=== PATIENT | female | born 1955 | race Caucasian/White ===

== ENCOUNTER → 2016-06-04 | Outpatient (CLI) | payer OTHER ==
--- NOTE | 2016-06-05 08:14 | KCIC ---
PROCEDURE MRI lumbar spine without contrast. HISTORY Low back pain, bilateral hip and entire leg pain for 2 months, multiple falls TECHNIQUE Multiplanar, multi sequential non contrast MR imaging was performed of the lumbar spine. COMPARISON None FINDINGS There is grade 1 anterior spondylolisthesis at L4-5 and L3-4 at which there is facet degenerative change. Lumbar vertebral body stature is adequate. There is moderate to severe degenerative disc disease greater anteriorly at L4-5, to a lesser degree at L3-4 and L5-S1 and minimally at L2-3. There is also moderate degenerative disc disease at T12-L1, to lesser degree at T11-12. There are posterior annular tears at L3-4 and L4-5. There is no significant focal marrow edema. Conus terminates at L1. There is very mild reverse S-shaped curvature of the lumbar spine. Incidental note is made of retroaortic left renal vein. T11-T12: There is a shallow posterior central protrusion without spinal stenosis. Neural foramina are adequate. T12-L1: There is shallow protrusion superimposed on minimal disc osteophyte complex eccentric to the right lateral recess. Spinal canal is overall adequate. There is moderate narrowing of the right neural foramen, left neural foramen adequate. L1-2: There is negligible posterior central protrusion. Spinal canal and neural foramina are adequate. L2-3: There is mild prominence of posterior epidural fat. There is negligible disc osteophyte complex. Neural foramina and spinal canal are adequate. L3-4: There is moderate to severe facet degenerative change and severe buckling of the ligamentum flavum. There is partial uncovering of the posterior aspect of the disc due to spondylolisthesis, minimal superimposed disc osteophyte complex in the inferior left neural foramen. There is severe spinal stenosis, very limited preserved subarachnoid space. Right neural foramen is adequate, moderate narrowing of the left neural foramen with contact undersurface of the exiting left L3 nerve root distal aspect of the neural foramen. L4-5: There is moderate to severe facet hypertrophic change. There is mild partial uncovering of the posterior aspect of the disc due to spondylolisthesis. There is mild to moderate left lateral recess stenosis primarily from posteriorly by facet. There is mild narrowing of the left neural foramen, right neural foramen adequate. L5-S1: There is prominence of epidural fat in the lateral recesses bilaterally, very limited preserved central subarachnoid space. There is negligible disc osteophyte complex and bulge. There is minimal narrowing of the right neural foramen, left neural foramen adequate. IMPRESSION 1. There is severe spinal stenosis L3-4, mild to moderate left lateral recess stenosis at L4-5. 2. There is moderate to severe degenerative disc disease greater anteriorly at L4-5, to a lesser degree at L3-4, L5-S1, and T12-L1. 3. There is grade 1 anterior spondylolisthesis at L4-5 and L3-4 at which there is facet degenerative change. 4. There is moderate narrowing of the left L3-4 neural foramen with contact exiting left L3 nerve root, other mild narrowing as stated. Electronically signed by: Fred Hernandez MD (Jun 05, 2016 08:12:19)
== END | disposition home or self-care (01) ==
LOC: KCIC MRI 17:14
PROVIDERS: ATTEND Family Medicine
DX: M48.06 Spinal stenosis, lumbar region (principal); M43.16 Spondylolisthesis, lumbar region; M51.35 Other intervertebral disc degeneration, thoracolumbar region; M51.16 Intervertebral disc disorders with radiculopathy, lumbar region; M25.78 Osteophyte, vertebrae
CPT/HCPCS: 72148

== ENCOUNTER → 2016-06-17 | Outpatient (CLI) | payer OTHER ==
--- NOTE | 2016-06-17 12:51 | KCIC ---
PROCEDURE Three-view lumbar spine HISTORY Spondylolisthesis. Chronic low back pain. Multiple falls. COMPARISON No prior x-rays. Correlation is made with sagittal MR lumbar spine June 04, 2016. FINDINGS Neutral supine lateral, and standing lateral flexion and standing lateral extension views are obtained. Multilevel lumbar spondylosis with marginal osteophytes. Mild anterolisthesis of L3 on L4 and L4 on L5. The alignment appears fairly similar on the flexion and extension views, and also appears similar with what was seen on the lumbar spine MRI. No evidence of vertebral body compression deformity or aggressive bone destruction. There is minimal retrolisthesis T10 on T11 and T11 on T12 which is stable on the standing and the supine neutral view. IMPRESSION Multilevel lumbar spondylosis. Spondylolisthesis, particularly at L3-L4 and L4-L5, appears similar on the 3 images. Electronically signed by: Reid Fitzpatrick MD (Jun 17, 2016 12:50:03)
== END | disposition home or self-care (01) ==
LOC: KCIC 11:40
PROVIDERS: ATTEND Neurological Surgery
DX: M43.16 Spondylolisthesis, lumbar region (principal); M54.5 Low back pain; R29.6 Repeated falls
CPT/HCPCS: 72100

== ENCOUNTER → 2016-08-21 | Outpatient (CLI) | payer OTHER ==
[~2016-08-21] MED LIST: CALC-98 PO; CHOL100013 PO; FEXO1TAB31 PO; FLAX1CAP PO; HYDR50TA6 PO; METF-620 PO; OMEP20TA63 PO; SERT100T PO; SIMV20TA3 PO
[2016-08-21 14:56] LABS: BASO % 1 % (0-3); EOS % 7 % (0-3); HEMATOCRIT 36.5 % (36.0-47.0); HEMOGLOBIN 11.9 g/dL (12.0-15.5); LYMPH # 1.8 x10^3/uL (1.0-4.8); LYMPH % 24 % (24-48); MEAN CORPUSCULAR HEMOGLOBIN 26 pg (25-35); MEAN CORPUSCULAR HGB CONC 33 g/dL (31-37); MEAN CORPUSCULAR VOLUME 80 fL (79-100); MONO % 11 % (0-9); NEUT % 58 % (31-73); PLATELET COUNT 196 x10^3/uL (140-400); RED BLOOD COUNT 4.58 x10^6/uL (3.50-5.40); RED CELL DISTRIBUTION WIDTH 14.9 % (11.5-14.5); WHITE BLOOD COUNT 7.7 x10^3/uL (4.0-11.0)
--- NOTE | 2016-08-21 15:07 | EKG ---
[facility] [address] [place] [address] Test Date: 2016-08-21 Test Time: 15:07:40 Pat Name: NEELA WASHINGTON Department: Room: Gender: F [employer] Operator: YOUNG : 1955 Requested By: CHET BROOKS Order Number: [id number] Reading MD: Naun Mcqueen Measurements Intervals [place] Rate: 80 P: 38 [place]: 148 QRS: 11 QRSD: 94 T: 31 QT: 382 QTc: 444 Interpretive Statements SINUS RHYTHM INCOMPLETE RIGHT BUNDLE BRANCH BLOCK Electronically Signed On 08-22-2016 13:35:08 CDT by Naun Mcqueen
[2016-08-21 15:11] LABS: ALBUMIN 4.1 g/dL (3.4-5.0); ALBUMIN/GLOBULIN RATIO 1.1 (1.0-1.7); CALCIUM 10.1 mg/dL (8.5-10.1); CREATININE 0.7 mg/dL (0.6-1.0); GFR 85.1; POTASSIUM 3.9 mmol/L (3.5-5.1); TOTAL BILIRUBIN 0.3 mg/dL (0.2-1.0); TOTAL PROTEIN 7.7 g/dL (6.4-8.2)
--- NOTE | 2016-08-26 10:49 | HP ---
ADMIT DATE: 08/21/2016 Robert Dumont APRN dictating for Dr. Cabrera Brooks. Date of surgery will be 08/29/2016. HISTORY OF PRESENT ILLNESS: The patient is a pleasant 61-year-old who has problems with low back pain and pain which radiates into both of her legs. The pain tends to radiate into the buttock and posterior thighs and legs. She notes numbness predominantly in her left calf and foot. The problem started in early March. She reports multiple falls in 2016. She said she rates her pain as a 5/10 and that it is worse in the morning. Staying active seems to help. She takes Aleve. She has had chiropractic treatment, which gave her some short-term relief as well as physical therapy, which did not help her significantly. She takes [place] 7.5 to help with this pain. PAST MEDICAL HISTORY: Arthritis, asthma, head and neck injury, heart murmur, serious infection of the stomach, question intestinal disease and appendicitis. PAST SURGICAL HISTORY: Hysterectomy in 2003, cervical surgery in 1999, right carpal tunnel release in 2011, right knee in 2011, abdominal surgery, ruptured appendix in 2011. FAMILY HISTORY: Alzheimer's, bleeding problems, cancer, diabetes, heart problem/disease, hypertension, spine problems. SOCIAL HISTORY: She is a retired nurse. . Exercises weekly. Denies substance abuse. Denies tobacco use. Drinks alcohol one to two times per month. Drinks coffee, tea and soda. ALLERGIES: SULFA DRUGS AND IV CONTRAST DYE. CURRENT MEDICATIONS: Hydrochlorothiazide, Zoloft, Lisandra, metformin, simvastatin, multivitamin, calcium plus vitamin D, flaxseed oil, black cohosh, Aleve and prednisone. REVIEW OF SYSTEMS: A 12-point review of systems was obtained and is noncontributory except for that mentioned above. PHYSICAL EXAMINATION: GENERAL APPEARANCE: There is tenderness of lower lumbar spine with palpation diffusely. Paraspinal muscle bulk and strength are normal. There is restricted range of motion of the lumbar spine. NEUROLOGIC: On neurological testing, strength is 5/5. Sensory examination: There is decrease in light touch involving the leg and foot on the left. Her reflexes were trace at the knees and absent at the ankles. Straight leg raising on the left was positive. She has left buttock and posterior thigh pain. Straight leg raising is negative on the right. She had forward stooped antalgic gait. IMAGING: Reviewed. I reviewed her lumbar myelogram and post-myelogram CT scan. On that study, she has very severe stenosis at L3-L4 along with grade 1 spondylolisthesis at L3-L4 and L4-L5. She has moderate stenosis at L4-L5. There is no motion on flexion and extension views. ASSESSMENT: Spinal stenosis, lumbar region. PLAN: At this point, I feel that the most prudent course would be to operate and perform a laminectomy at L3-L4 to see if this does not help her. I explained in the future, she may require instrumented fusion, but at this point based on the imaging studies, the most prudent course would be decompress her alone. I outlined the surgery and the techniques involved. I outlined the risks. She understood. She would like to go ahead. CABRERA BROOKS MD DR: GEOVANNI/zheng JOB#: [id number] / [id number]
== END | disposition home or self-care (01) ==
LOC: SURGPAT 14:27
PROVIDERS: ATTEND Neurological Surgery
DX: M48.06 Spinal stenosis, lumbar region (principal)
CPT/HCPCS: 36415; 80053; 85027; 87641; 93005

== ENCOUNTER 2016-08-29 07:03 | Day surgery (SDC) | payer OTHER ==
[~2016-08-29] VITALS: Ht 175.3 cm; Wt 102.5 kg
[~2016-08-29 07:03] MED LIST changes: +BACITRACIN 50,000 UNIT in IV NORMAL SALINE 1000ML BAG 1,000 ML IRR ONE; +HYDROmorphone 2 MG/ML VIAL IV PRN; +IV RINGERS,LACTATED 1000ML 1,000 ML IV SCH; +LIDOCAINE 1% 1 ML SYRINGE. ID PRN; +MORPHINE SULFATE 2 MG/ML DISP.SYRIN. IV PRN; +ONDANSETRON PF 4 MG/2 ML VIAL. IV PRN; +PROCHLORPERAZINE 10 MG/2 ML VIAL. IV PRN; +fentaNYL PF VIAL 100 MCG/2 ML VIAL IV PRN
[2016-08-29] MEDS ORDERED: THROMBIN TOPICAL 20,000 UNIT SPRAY.SYRN KIT TP ONE (07:36)
[2016-08-29] MEDS ORDERED: BUPIVAC MPF-EPI 0.5%-1:200000 30 ML VIAL. ONE (07:36)
[2016-08-29] MEDS ORDERED: KETOROLAC 60 MG/2 ML INJ FOR OR. ONE (07:36)
[2016-08-29] MEDS ORDERED: GELATIN SPONGE SIZE 100. ONE (07:36)
[2016-08-29] MEDS ORDERED: fentaNYL PF VIAL 100 MCG/2 ML VIAL ONE (07:42)
[2016-08-29] MEDS ORDERED: SUCCINYLCHOLINE 200 MG/10 ML VIAL. ONE (07:42)
[2016-08-29] MEDS ORDERED: REMIFENTANIL 2 MG VIAL. IV ONE (07:42)
[2016-08-29] MEDS ORDERED: PROPOFOL 20 ML IV ONE (07:42)
[2016-08-29] MEDS ORDERED: PROPOFOL 50 ML IV ONE ×2 (07:42→10:18)
[2016-08-29] MEDS ORDERED: LIDOCAINE 2% PF Vial for OR 5 ML VIAL. ONE (07:42)
[2016-08-29] MEDS ORDERED: 0.9 % SODIUM CHLORIDE 50 ML VIAL. IJ ONE (07:42)
[2016-08-29] MEDS ORDERED: ROCURONIUM 50 MG/5 ML VIAL. ONE (07:43)
--- NOTE | 2016-08-29 09:14 | HP ---
ADMIT DATE: 08/29/2016 Robert Dumont APRN dictating for Dr. Cabrera Brooks. Date of surgery will be 08/29/2016. HISTORY OF PRESENT ILLNESS: The patient is a pleasant 61-year-old who has problems with low back pain and pain which radiates into both of her legs. The pain tends to radiate into the buttock and posterior thighs and legs. She notes numbness predominantly in her left calf and foot. The problem started in early March. She reports multiple falls in 2016. She said she rates her pain as a 5/10 and that it is worse in the morning. Staying active seems to help. She takes Aleve. She has had chiropractic treatment, which gave her some short-term relief as well as physical therapy, which did not help her significantly. She takes [place] 7.5 to help with this pain. PAST MEDICAL HISTORY: Arthritis, asthma, head and neck injury, heart murmur, serious infection of the stomach, question intestinal disease and appendicitis. PAST SURGICAL HISTORY: Hysterectomy in 2003, cervical surgery in 1999, right carpal tunnel release in 2011, right knee in 2011, abdominal surgery, ruptured appendix in 2011. FAMILY HISTORY: Alzheimer's, bleeding problems, cancer, diabetes, heart problem/disease, hypertension, spine problems. SOCIAL HISTORY: She is a retired nurse. . Exercises weekly. Denies substance abuse. Denies tobacco use. Drinks alcohol one to two times per month. Drinks coffee, tea and soda. ALLERGIES: SULFA DRUGS AND IV CONTRAST DYE. CURRENT MEDICATIONS: Hydrochlorothiazide, Zoloft, Lisandra, metformin, simvastatin, multivitamin, calcium plus vitamin D, flaxseed oil, black cohosh, Aleve and prednisone. REVIEW OF SYSTEMS: A 12-point review of systems was obtained and is noncontributory except for that mentioned above. PHYSICAL EXAMINATION: GENERAL APPEARANCE: There is tenderness of lower lumbar spine with palpation diffusely. Paraspinal muscle bulk and strength are normal. There is restricted range of motion of the lumbar spine. NEUROLOGIC: On neurological testing, strength is 5/5. Sensory examination: There is decrease in light touch involving the leg and foot on the left. Her reflexes were trace at the knees and absent at the ankles. Straight leg raising on the left was positive. She has left buttock and posterior thigh pain. Straight leg raising is negative on the right. She had forward stooped antalgic gait. IMAGING: Reviewed. I reviewed her lumbar myelogram and post-myelogram CT scan. On that study, she has very severe stenosis at L3-L4 along with grade 1 spondylolisthesis at L3-L4 and L4-L5. She has moderate stenosis at L4-L5. There is no motion on flexion and extension views. ASSESSMENT: Spinal stenosis, lumbar region. PLAN: At this point, I feel that the most prudent course would be to operate and perform a laminectomy at L3-L4 to see if this does not help her. I explained in the future, she may require instrumented fusion, but at this point based on the imaging studies, the most prudent course would be decompress her alone. I outlined the surgery and the techniques involved. I outlined the risks. She understood. She would like to go ahead. CABRERA BROOKS MD DR: GEOVANNI/zheng JOB#: [id number] / [id number]
[2016-08-29] MEDS ORDERED: DEXAMETHASONE SOD PHOS 20 MG/5 ML VIAL. ONE (09:26)
[2016-08-29] MEDS ORDERED: DESFLURANE > 120 MINUTES IH ONE (09:26)
[2016-08-29] MEDS ORDERED: PHENYLEPHRINE in 0.9% NACL PF 1 MG/10 ML DISP.SYRIN. IV ONE (09:26)
[2016-08-29] MEDS ORDERED: ePHEDrine PF IN SALINE 50 MG/5 ML DISP.SYRIN IV ONE (09:32)
[2016-08-29] MEDS ORDERED: ONDANSETRON PF 4 MG/2 ML VIAL. ONE (09:50)
--- NOTE | 2016-08-29 12:59 | DISCH ---
DISCHARGE INSTRUCTIONS Condition on Discharge Condition on Discharge: Stable Activity After Discharge Activity Instructions for Disc: Activity as tolerated, Avoid exertion Other activity instructions: no driving for a week Bathing Instructions: Shower-keep dressing dry Lifting Instructions after Dis: No heavy lifting, No pulling or pushing, Do not lift >10 pounds Diet after Discharge Additional Diet Restrictions: resume home diet Wound Incision Care Wound/Incision Care: Ice to area for comfort Other wound/incision instructi: may remove dressing in 48 hrs if dry, then may shower- no soaking Contacting the after DC Call your doctor for: Concerns you may have Follow-Up Follow up with: Dr. Brooks's nurse in 2 weeks [phone] CHET BROOKS MD Aug 29, 2016 12:59
[2016-08-29] MEDS ORDERED: HYDR-2762 PO (13:06)
[2016-08-29] MEDS ORDERED: DOCU-109 PO (13:06)
[2016-08-29] MEDS ORDERED: METH-38 PO (13:06)
[2016-08-29] MEDS ORDERED: HYDROcodone/APAP 7.5/325MG 1 TAB TABLET PO PRN (13:30)
[2016-08-29 13:40] VITALS: BP 137/67
--- NOTE | 2016-08-29 16:56 | OP ---
DATE OF SURGERY: 08/29/2016 PREOPERATIVE DIAGNOSES: Severe lumbar spinal stenosis at L3-L4 with neurogenic claudication. POSTOPERATIVE DIAGNOSES: Severe lumbar spinal stenosis at L3-L4 with neurogenic claudication. OPERATION PERFORMED: Lumbar laminectomy at L3-L4. SURGEON: Cabrera Brooks M.D. PROGRAM CONTROL ANALYST: Alexsander Ann M.D., who assisted with the exposure of the microdecompression as well as the closure. The operation was done with EMG monitoring, fluoroscopy, microscopic dissection. OPERATIVE INDICATIONS: The patient is a very pleasant 61-year-old who developed intractable back and bilateral leg pain in a neurogenic claudication type pattern. On imaging studies, she had a grade 1 spondylolisthesis at L3-L4 and L4-L5 without motion on flexion and extension films. It was relatively severe stenosis at L3-L4 and I recommended lumbar laminectomy at this level to decompress. I explained to her that in the future, she may require an instrumental lumbar fusion, but at this point, I felt the most prudent course would be to perform microdecompression surgery alone. She understood the surgery and the risks, she understood the technique of the operation, and she wished to go ahead. DESCRIPTION OF PROCEDURE: Following general endotracheal anesthesia, the patient was positioned prone on the Alex table and lumbar region prepped and draped in standard fashion. TRESSA hose and AV impulse boots were applied for DVT prophylaxis. A microscope was draped. Fluoroscopy was draped and brought into field. Monitoring was established. Ancef 2 grams were given less than 1 hour prior to initiation of surgery. Using fluoroscopic guidance, a midline incision was made over the L3-L4 interspace, reflected the paraspinal muscles down the right hand side and brought in the microscope and the remainder of the surgery was done with microscope using microscopic technique. I burred down a generous hemilaminotomy and then carried this beneath the spinous process across to the contralateral side and then grasped and peeled away very thickened ligamentum flavum. The ligament was moderately scarred to the dura, but I was able to develop a plane and peel this away and as I worked, the entire region became very well decompressed. I then went to the left side and in a similar fashion using the high speed air drill, I burred down a generous hemilaminotomy and as well as the other side performed a partial foraminotomy. I then worked superiorly and freed up the dura and began to peel this from a superior to inferior, but found that it was densely scarred on the left side to the underlying dura. I worked gently and freed up the majority of this material and peeled this away, but there was some ligament left behind densely adherent to the underlying dura and I was afraid that further work would cause a dural injury and spinal fluid leak. At any rate, at this point, the dura was very well decompressed and pulsating nicely and I felt to have an excellent decompression. I irrigated copiously with antibiotic solution. Hemostasis was somewhat difficult. The bone was very vascular and I used bone wax throughout the operation to maintain hemostasis as well as the intermittent use of bipolar cautery. I irrigated copiously and did lay Gelfoam over the exposed muscle. I closed the wound in layers with absorbable suture after obtaining perfect hemostasis in the muscle. The skin was closed with 4-0 subcuticular stitch. Operation went very well and I was quite pleased with the surgery. CABRERA BROOKS MD DR: GEOVANNI/zheng JOB#: [id number] / [id number] LASHAE
--- NOTE | 2016-09-01 16:53 | PATHOLOGY ---
PATHOLOGY REPORT * * * * * * * * FINAL DIAGNOSIS: Segments of fibrocartilaginous, fibroadipose, and skeletal muscle tissue and bone, lumbar decompression: - Degenerative changes of fibrocartilaginous tissue. COMMENT: There is no evidence of an acute inflammatory process or malignancy. (JPM:mml; d/t: 09/01/2016) REPORT ELECTRONICALLY SIGNED BY: Carter Kingsley M.D. DATE/TIME: 09/01/2016 16:49 * * * * * * * * GROSS PATHOLOGY: Received in formalin labeled "Emilee Washington, lumbar decompression" are multiple segments of mccormick, rubbery, and gritty tissue admixed with bone. The specimen measures 3.8 x 3.5 x 1.2 cm in aggregate dimensions. The tissue is submitted entirely in cassette A1, following decalcification. (JPM; 08/29/16) INITIAL CPT CODE(S): A; 74356, 35539 Professional services performed [place] [facility] [place] [address] Technical services performed by [facility] at [address] [place] [address]. SPECIMEN(S) RECEIVED: A.Lumbar decompression CLINICAL HISTORY: Lumbar stenosis PATIENT: EMILEE WASHINGTON /AGE: 4 1955 (Age: 61) PATIENT #: [id number] ALT CASE #: SPECIMEN COLLECTION DATE: 08/29/2016 SPECIMEN RECEIVED DATE: 08/29/2016 [facility] - [address] [place] [address] - PHONE: [phone] * * * END OF REPORT * * *
== END 2016-08-29 14:08 | disposition home or self-care (01) ==
LOC: SURG 07:03
PROVIDERS: ATTEND Neurological Surgery
DX: M48.06 Spinal stenosis, lumbar region (principal); G95.19 Other vascular myelopathies; M43.16 Spondylolisthesis, lumbar region; M19.90 Unspecified osteoarthritis, unspecified site; J45.909 Unspecified asthma, uncomplicated; Z90.710 Acquired absence of both cervix and uterus; Z83.3 Family history of diabetes mellitus; Z82.49 Family history of ischemic heart disease and other diseases of the circulatory system; Z72.89 Other problems related to lifestyle; Z88.2 Allergy status to sulfonamides; Z91.048 Other nonmedicinal substance allergy status
CPT/HCPCS: 63047; 76000; 82962; 97161; J0330; J0690; J1100; J1885; J2370; J2405; J2704; J3010; J3490; J7030; J7120; 88304; 88311

== ENCOUNTER → 2017-04-29 | Outpatient (CLI) | payer OTHER | END | disposition home or self-care (01) | LOC: MRI 08:38 | DX: K83.8 Other specified diseases of biliary tract (principal); R79.89 Other specified abnormal findings of blood chemistry | CPT/HCPCS: 74181 ==